=== PATIENT | female | born 1970 | race Caucasian/White ===

== ENCOUNTER 2020-01-20 12:52 | Emergency (ER) | payer BC, SELFPAY ==
[2020-01-20 13:02] VITALS: BP 160/90; PULSE 114; RESP 22; TEMP 36.6; O2SAT 99
[2020-01-20] MEDS: KETOROLAC 60 MG/2 ML VIAL 30 MG IM (14:22)
[2020-01-20 14:30] VITALS: BP 157/87; PULSE 74; O2SAT 100
--- NOTE | 2020-01-20 14:49 | ED_ITS ---
HPI - Extremity Injury (Upper) <AMARA Phipps - Last Filed: 01/20/20 20:15> General Chief Complaint: Extremity Injury, Upper Stated Complaint: Tendonitis In Left Elbow Time Seen by Provider: 01/20/20 14:05 Source: patient Mode of arrival: Ambulatory History of Present Illness HPI narrative: 49-year-old female presents to ED for bilateral elbow pain. She states she has a history of elbow tendonitis in tennis elbow, she recently moved from [place] and has been lifting lots of boxes. Patient reports tendinitis has been worsening since then. She has taken ibuprofen which has helped some. She also has history of left arm numbness and tingling from cervical spinal issues. She reports some worsening tingling in her left fingers with movement of her left elbow. Patient states pain is worse when she attempts to lift something. She denies any other symptoms such as fevers, chills, chest pain, shortness of breath, dizziness, nausea, vomiting, diarrhea, or other concerns. Related Data Previous Rx's Medication Instructions Recorded prednisone 20 mg PO DAILY 5 Days #5 tab 01/20/20 Allergies Allergy/AdvReac Type Severity Reaction Status Date / Time codeine Allergy Verified 01/20/20 13:05 Review of Systems <AMARA Phipps - Last Filed: 01/20/20 20:15> Review of Systems Narrative: REVIEW OF SYSTEMS: GENERAL: Denies fever or chills. HENT: No head trauma. CARDIOVASCULAR: No chest pain. RESPIRATORY: No cough. GASTROINTESTINAL: No nausea, vomiting, diarrhea, or constipation. MUSCULOSKELETAL: Complains of bilateral elbow pain, see HPI. INTEGUMENTARY: No rash NEURO: Reports chronic left-sided numbness and tingling, see HPI. PSYCH: No behavior or mood changes. Patient History <AMARA Phipps - Last Filed: 01/20/20 20:15> Medical History No significant medical problems (Acute) Social History Smoking Status: Current every day smoker Smoking Status: Current every day smoker alcohol intake frequency: 0-2 drinks per day Exam <AMARA Phipps - Last Filed: 01/20/20 20:15> Initial Vital Signs Initial Vital Signs: Vital Signs Temperature 97.9 F 01/20/20 13:02 Pulse Rate 114 H 01/20/20 13:02 Respiratory Rate 22 01/20/20 13:02 Blood Pressure 160/90 H 01/20/20 13:02 Pulse Oximetry 99 01/20/20 13:02 PHYSICAL EXAMINATION: GENERAL: Well groomed, alert, and cooperative. Answers questions promptly and appropriately. Vital signs noted. HENT: Normocephalic, atraumatic. EYES: Symmetrical, sclera white, no periorbital swelling. CARDIOVASCULAR: Regular rate. RESPIRATORY: Normal respiratory rate, trachea midline, airway patent. No stridor, nasal flaring or accessory muscle use. MUSCULOSKELETAL: Bilateral tenderness to insertion of extensor tendon, and lateral aspect of nerves. Equal director [employer] strength, forearm strength, and deltoid strength bilaterally. Normal gait and coordination. Equal tone and mass bilaterally. EXTREMITIES: CMS intact. No pedal edema. SKIN: Warm, dry, soft, appropriate color for ethnicity. No lesions, rashes, or wounds. NEURO: Alert and Oriented X 3. No sensory deficits. PSYCH: Appropriate affect and mood. <Connie Guzmán DO - Last Filed: 01/21/20 08:27> Initial Vital Signs Initial Vital Signs: Vital Signs Temperature 97.9 F 01/20/20 13:02 Pulse Rate 114 H 01/20/20 13:02 Respiratory Rate 22 01/20/20 13:02 Blood Pressure 160/90 H 01/20/20 13:02 Pulse Oximetry 99 01/20/20 13:02 Course <AMARA Phipps - Last Filed: 01/20/20 20:15> Course Course Narrative: Patient given injection of Toradol, reported improved pain. Orders Ordered: Discontinued Medications Ketorolac Tromethamine (Toradol) 30 mg IM NOW ONE Stop: 01/20/20 14:17 Last Admin: 01/20/20 14:22 Dose: 30 mg Documented by: RODNEY Vital Signs Vital signs: Vital Signs - 8 hr 01/20/20 13:02 01/20/20 14:30 Temperature 97.9 F Pulse Rate 114 H 74 Respiratory Rate 22 Blood Pressure 160/90 H 157/87 H Pulse Oximetry 99 100 <Connie Guzmán DO - Last Filed: 01/21/20 08:27> Orders Ordered: Discontinued Medications Ketorolac Tromethamine (Toradol) 30 mg IM NOW ONE Stop: 01/20/20 14:17 Last Admin: 01/20/20 14:22 Dose: 30 mg Documented by: RODNEY Vital Signs Vital signs: Vital Signs - 8 hr 01/20/20 13:02 01/20/20 14:30 Temperature 97.9 F Pulse Rate 114 H 74 Respiratory Rate 22 Blood Pressure 160/90 H 157/87 H Pulse Oximetry 99 100 MDM - Extremity Injury (Upper) <AMARA Phipps - Last Filed: 01/20/20 20:15> Medical Records Attestation: I reviewed the patient's medical records. Lab Data Attestation: I reviewed the patient's lab results. [facility] Narrative Medical decision making narrative: History and examination consistent with bilateral tennis elbow/tendinitis. Less likely fracture given nature of injury, history of tennis elbow. Patient has chronic numbness and tingling of left arm, equal director [employer] strength bilaterally, no concern for nerve compromise. She was given Toradol injection in the clinic to help with pain. Patient was prescribed prednisone to help with nerve irritation inflammation. She was encouraged to follow up with PCP, referral to Ortho was placed but I discussed with patient that she may need to follow up with her PCP 1st to try physical therapy before ortho can establish an appointment. Patient agreed to plan of care verbalized understanding of plan of care. Discharge Plan Departure Patient Disposition: Home Clinical Impression: Bilateral elbow tendonitis Discharge Date/Time: 01/20/20 14:34 Instructions: DI for Tendinitis Activity Restrictions/Additional Instructions: Thank you for entrusting me with your care today. As discussed, I have given you a prescription for prednisone to help decrease inflammation related to your tendons elbow. Additionally, every for due to an orthopedic. However, they may request that you establish a primary care provider and try physical therapy 1st. Take ibuprofen 600 mg every 6-8 hours as needed for pain. Rest, stretch, and massage the area frequently. Continue with hot baths and hot compresses. Return emergency department for any new or worsening symptoms. Prescriptions: New prednisone 20 mg tablet 20 mg PO DAILY 5 Days Qty: 5 RF: 0 <Connie Guzmán DO - Last Filed: 01/21/20 08:27> Cosign ED Attending Cosignature Attestation: I was immediately available in the department for consultation. Documentation has been reviewed. I agree with assessment and plan.
== END 2020-01-20 14:34 | disposition home or self-care (01) ==
PROVIDERS: Emergency Provider Nurse Practitioner
DX: M77.8 Other enthesopathies, not elsewhere classified (principal)
CPT/HCPCS: 96372; 99283; J1885

== ENCOUNTER → 2020-02-19 09:15 | Outpatient (CLI) | payer BC, SELFPAY ==
[2020-02-19 13:25] LABS: COVID19 -Nasal RAPID Negative (Negative)
== END ==
PROVIDERS: Visit Provider Physician Assistant
DX: R11.0 Nausea (principal); R19.7 Diarrhea, unspecified
CPT/HCPCS: 87635

== ENCOUNTER → 2020-03-28 09:17 | Outpatient (CLI) | payer BC, SELFPAY ==
[2020-03-28 09:50] LABS: Add Manual Diff / Slide Review NO; Basophils Absolute Auto 100 /uL (0-100); Basophils Percent Auto 0.7 % (0-2); Eosinophils Absolute Auto 100 /uL (0-450); Eosinophils Percent Auto 1.7 % (2-4); Hematocrit 43.3 % (36-46); Hemoglobin 14.8 g/dL (12.0-16.0); Lymphocytes Absolute Auto 2900 /uL (1100-4500); Lymphocytes Percent Auto 39.1 % (25-40); Mean Corpuscular HGB Conc 34.2 % (30-36); Mean Corpuscular Hemoglobin 29.6 PG (26-34); Mean Corpuscular Volume 86.6 fL (80-100); Monocytes Absolute Auto 600 /uL (0-900); Monocytes Percent Auto 8.2 % (3-14); Neutrophils Absolute Auto 3800 /uL (1500-7000); Neutrophils Percent Auto 50.3 % (50-75); Platelet Count 259 X10^3/uL (150-400); Red Cell Distribution Width 13.3 % (11.6-14.8); White Blood Cell Count 7.5 X10^3/uL (4.5-11.0)
[2020-03-28 09:59] LABS: Hemoglobin A1C% w Est Avg Glu 5.8 % (4.0-6.0)
[2020-03-28 10:26] LABS: BUN Creatinine Ratio 21.3 (6-22); Blood Urea Nitrogen 13 mg/dL (7-17); Calcium 9.4 mg/dL (8.4-10.2); Carbon Dioxide 26 mmol/L (22-32); Chloride 109 mmol/L (98-107); Cholesterol 234 mg/dL (140-199); Estimated Glomerular Filt Rate > 60.0 mL/min (>60); Glucose 121 mg/dL (70-100); HDL Cholesterol 46 mg/dL (40-60); HEMOLYSIS < 15 (0-50); LDL Cholesterol Calculated 154 mg/dL (<100); Sodium 138 mmol/L (137-145); Triglycerides 169 mg/dL (35-150)
== END ==
PROVIDERS: Referring Provider Nurse Practitioner Family; Visit Provider Nurse Practitioner Family
DX: Z00.01 Encounter for general adult medical examination with abnormal findings (principal); I10 Essential (primary) hypertension; E78.5 Hyperlipidemia, unspecified
CPT/HCPCS: 36415; 80048; 80061; 83036; 85025

== ENCOUNTER 2020-05-24 07:11 | Emergency (ER) | payer BC, SELFPAY ==
[2020-05-24 07:22] VITALS: BP 129/78; PULSE 93; RESP 20; TEMP 36.5; O2SAT 99; BMI 31.3
[2020-05-24] MEDS: IBUPROFEN 400 MG TABLET 800 MG PO (07:28)
--- NOTE | 2020-05-24 07:36 | ED_ITS ---
HPI - General Adult General Chief complaint: Ear Stated complaint: ear ache Time Seen by Provider: 05/24/20 07:20 Source: patient Mode of arrival: Ambulatory Limitations: no limitations History of Present Illness HPI narrative: 50-year-old female here for evaluation of right ear pain. She states that it initially started hurting approximately 5 days ago however last evening seem to worsen. She has not tried anything for it. No cough. No headache. No sinus congestion. No sore throat. Does not have any left ear discomfort. Related Data Previous Rx's Medication Instructions Recorded ciprofloxacin-dexamethasone 4 drp EAR-RIGHT BID 7 Days #7.5 ml 05/24/20 [Ciprodex] Allergies Allergy/AdvReac Type Severity Reaction Status Date / Time codeine Allergy Verified 05/24/20 07:22 Review of Systems Constitutional Constitutional: Denies fever(s) and Denies headache(s) Eyes Eyes: Denies change in vision and Denies itchy eyes ENT Ears, Nose, Mouth, and Throat: Denies headache(s) and Denies throat swelling Comments: Right ear pain Cardiovascular Cardiovascular: Denies chest pain Respiratory Respiratory: Denies cough Integumentary/Breasts Skin/Breast: Denies rash Neurologic Neurologic: Denies behavioral changes and Denies headache(s) Psychiatric Psychiatric: Denies behavioral changes Hematologic/Lymphatic On Anticoagulants: No Allergic/Immunologic Allergic/Immunologic: Denies urticaria, Denies itchy eyes and Denies throat swelling Patient History Medical History (Updated 05/24/20 @ 07:40 by David Wheeler DO) No significant medical problems Social History Smoking Status: Current every day smoker Smoking Status: Current every day smoker alcohol intake frequency: 0-2 drinks per day Alcohol type: wine Substance Use Type: marijuana Exam Initial Vital Signs Initial Vital Signs: Vital Signs Temperature 97.7 F 05/24/20 07:22 Pulse Rate 93 H 05/24/20 07:22 Respiratory Rate 20 05/24/20 07:22 Blood Pressure 129/78 05/24/20 07:22 Pulse Oximetry 99 05/24/20 07:22 Const General: cooperative Limitations: mental status not altered HENMT Head: normal to inspection and normocephalic Ears: hearing grossly normal bilaterally, external ears normal (Does have tenderness with movement of the right auricle), EAC abnormal erythema on the right and EAC tenderness (Left EAC unremarkable) on the right and other (Bilateral tympanic membranes bulging without erythema) Eyes General: appearance normal, both eyes and all related structures Skin Lesions: no lesions Rashes: no rashes Neuro General: patient alert and patient awake Course Orders Ordered: Discontinued Medications Ibuprofen (Ibuprofen 400 Mg Tablet) 800 mg PO NOW ONE Stop: 05/24/20 07:21 Last Admin: 05/24/20 07:28 Dose: 800 mg Documented by: JENNY Vital Signs Vital signs: Vital Signs - 8 hr 05/24/20 07:22 Temperature 97.7 F Pulse Rate 93 H Respiratory Rate 20 Blood Pressure 129/78 Pulse Oximetry 99 Medical Decision Making MDM Narrative Medical decision making narrative: Patient's history and physical exam today is consistent with otitis externa. There is no signs of mastoiditis. There is no surrounding erythema outside the ear. The right external auditory canal is red without any signs of pustules or vesicles. Bilateral tympanic membranes are bulging however there is no erythema. The left EAC is unremarkable. Will place the patient on antibiotic drops. She was given return precautions. She expressed understanding and agreement. Discharge Plan Departure Patient Disposition: Home Clinical Impression: Otitis externa Instructions: DI for Otitis Externa Activity Restrictions/Additional Instructions: The antibiotic drops were electronically transmitted to [facility] per your request. Take the med as directed. You can take Tylenol and/or ibuprofen for any discomfort. Contact your primary provider for follow-up. Prescriptions: New ciprofloxacin-dexamethasone [Ciprodex] 0.3-0.1 % drops,suspension 4 drp EAR-RIGHT BID 7 Days Qty: 7.5 RF: 0
== END 2020-05-24 07:46 | disposition home or self-care (01) ==
PROVIDERS: Emergency Provider Emergency Medicine
DX: H60.91 Unspecified otitis externa, right ear (principal)
CPT/HCPCS: 99281

== ENCOUNTER 2021-09-06 20:29 | Emergency (ER) | payer BC, SELFPAY ==
[2021-09-06 20:39] VITALS: BP 153/91; PULSE 89; RESP 16; TEMP 36.9; O2SAT 97; BMI 31.3
[2021-09-06] MEDS: FAMOTIDINE 20 MG/2 ML VIAL IV (22:45)
[2021-09-06] MEDS: methylPREDNISolone 125 MG/2 ML VIAL IV (22:45)
[2021-09-06] MEDS: diphenhydrAMINE 50 MG/ML VIAL 25 MG IV (22:46)
--- NOTE | 2021-09-06 22:48 | ED.SKABFB ---
HPI - Skin/Abscess/Foreign Bdy General Chief complaint: Skin/Abscess/Foreign Body Stated complaint: Hives Time Seen by Provider: 09/06/21 20:34 Source: patient Mode of arrival: Ambulatory Limitations: no limitations History of Present Illness HPI narrative: 51-year-old female daily smoker with noncontributory medical history with a chief complaint of ongoing hives for the past few days. She has been in touch with her primary care provider and has been taking antihistamines. It is unclear if there is any classic or obvious trigger but she denies any new foods, lotions or soaps. She has no new pets. She does, however have a new place of living and also a new job for the past 2 weeks. She denies any facial swelling, tongue or lip swelling. She denies any shortness of breath or wheezing and has no GI symptoms such as nausea, vomiting or diarrhea. She has some right-sided throat pain and states this feels somewhat like strep that she has had in the past. Most notably, however are frequent episodes of rapidly appearing and also disappearing hives that present on her arms, chest, abdomen and back. Related Data Previous Rx's Medication Instructions Recorded prednisone 10 mg tablet See Rx Instructions .ROUTE 09/06/21 .COMPLEX #30 tab Allergies Allergy/AdvReac Type Severity Reaction Status Date / Time codeine Allergy Verified 05/24/20 07:22 Review of Systems Review of Systems Narrative: GENERAL: Denies chills, fatigue, malaise, fever, sweats. HEENT: See HPI RESPIRATORY: Denies dyspnea, cough, wheezing, hemoptysis, sputum. CARDIOVASCULAR: Denies chest pain, palpitations, orthopnea, edema, GASTROINTESTINAL: Denies nausea, vomiting, abdominal pain, diarrhea, constipation, melena. : Denies dysuria, frequency, incontinence, hematuria, urinary retention. MUSCULOSKELETAL: denies weakness, joint pain, or bony pain SKIN: See HPI NEUROLOGIC: Denies weakness, headache, numbness, change in speech, confusion, seizures, incoordination. PSYCHIATRIC: No concerning psychosocial issues. 12 point review of systems is negative except for those stated above Patient History Medical History No significant medical problems Social History Smoking Status: Current every day smoker Smoking Status: Current every day smoker alcohol intake frequency: 0-2 drinks per day Alcohol type: wine Substance Use Type: marijuana Exam Narrative Exam Narrative: GENERAL: [51] year old patient appears stated age. Well-developed patient, in no obvious distress HEAD: Atraumatic. Normocephalic. EYES: Pupils equal round and reactive. Extraocular motions intact. No scleral icterus. No injection or drainage. ENT: Nose without bleeding, purulent drainage. Throat without erythema, tonsillar hypertrophy or exudate. Airway patent. NECK: Trachea midline. Non tender CARDIOVASCULAR: Regular rate and rhythm without murmurs, gallops, or rubs. RESPIRATORY: Clear to auscultation. Breath sounds equal bilaterally. No wheezes, rales, or rhonchi. GASTROINTESTINAL: Abdomen soft, non-tender, nondistended. EXTREMITIES: No edema or joint tenderness. BACK: Nontender without deformity or crepitance. No flank tenderness. NEURO: AOx3. SKIN: Rare but relatively large urticaria on abdomen and back, should be noted that she developed a hive underneath the tourniquet when her IV was placed that disappeared relatively rapidly Initial Vital Signs Initial Vital Signs: Vital Signs Temperature 98.5 F 09/06/21 20:39 Pulse Rate 89 09/06/21 20:39 Respiratory Rate 16 09/06/21 20:39 Blood Pressure 153/91 H 09/06/21 20:39 Pulse Oximetry 97 09/06/21 20:39 Course Orders Ordered: Famotidine (Famotidine 20 Mg/2 Ml Vial) 20 mg IV NOW NATASHA Last Admin: 09/06/21 22:45 Dose: 20 mg Documented by: JOSE Discontinued Medications Diphenhydramine HCl (Diphenhydramine 50 Mg/Ml Vial) 25 mg IV NOW ONE Stop: 09/06/21 22:40 Last Admin: 09/06/21 22:46 Dose: 25 mg Documented by: JOSE Methylprednisolone (Methylprednisolone 125 Mg/2 Ml Vial) 125 mg IV NOW ONE Stop: 09/06/21 22:40 Last Admin: 09/06/21 22:45 Dose: 125 mg Documented by: JOSE Reevaluation(s) Reevaluation #1: Patient has significant improvement after above-stated therapies Vital Signs Vital signs: Vital Signs - 8 hr 09/06/21 20:39 Temperature 98.5 F Pulse Rate 89 Respiratory Rate 16 Blood Pressure 153/91 H Pulse Oximetry 97 MDM - Skin/Abscess/Foreign Bdy Lab Data Labs: Point of Care Testing Rapid Strep A Negative MDM Narrative Medical decision making narrative: Patient with hives in the absence of face or oral pharyngeal swelling, no trouble breathing or GI symptoms has improved presentation after typical therapies. Her trigger is unclear. She is talking with her primary about becoming established with an senior net software engineer. Return precautions discussed and questions answered to her apparent satisfaction Discharge Plan Departure Patient Disposition: Home Clinical Impression: Allergic reaction Instructions: Anaphylaxis Activity Restrictions/Additional Instructions: *You have been diagnosed with [allergic reaction] *What to do: *Please continue to take your regular medications as directed. [x ] New medication prescriptions sent to your pharmacy: [[facility]] [ ] New medication written as a paper prescription [ ] No new medications given *Please consider the routine use of over the counter antihistamines over the next few days 1. H1 blockers: Benadryl (Diphenhydramine), Zyrtec (Cetirizine), Becca (Fexofenadine) or Claritin (Loratadine) along with, 2. H2 blockers: Famotidine or Cimetidine *If you can please avoid what triggered your reaction today *Please follow up with your primary care provider in 2-3 days, call for an appointment. Let them know you were seen in the Emergency Department and that we ask that you be seen in follow up. We will electronically transmit a record of today's note if your PCP is in our system *If you do not have a primary care provider please contact the [facility] Resource line at [phone]. They will ask some questions about your medical history and help get you set up with a doctor in the community. *Return to Emergency Department if you should have any new, worsening or concerning symptoms, such as swelling of tongue, throat, trouble breathing, or other concerning symptoms Prescriptions: New prednisone 10 mg tablet See Rx Instructions .ROUTE .COMPLEX Qty: 30 0RF Rx Instructions: Day 1,2,3: 40mg PO Daily Day 4,5,6: 30mg PO Daily Day 7,8,9: 20mg PO Daily Day 10,11,12: 10mg PO Daily #30
[2021-09-06 23:58] VITALS: BP 158/87; PULSE 66; RESP 18; O2SAT 99
== END 2021-09-07 00:01 | disposition home or self-care (01) ==
PROVIDERS: Emergency Provider Emergency Medicine
DX: L50.9 Urticaria, unspecified (principal); T78.40XA Allergy, unspecified, initial encounter
CPT/HCPCS: 36415; 87880; 96374; 96375; 99284; J1200; J2930